=== PATIENT | female | born 1995 | race Caucasian/White ===

== ENCOUNTER → 2017-11-22 | Outpatient (REF) ==
[~2017-11-22] MED LIST: ALLEGRA60 MG PO; ATIVAN0.5 MG PO; FERROUS SU325 MG/TAB PO; KLONOPIN 0.5MG0.5 MG PO; MOTRIN 600600 MG/TAB PO; NO HOME MEDICATIONS; PERCOCET 325 MG1 TA2 PO; PRENATAL1 TA1 PO; ROXICODONE 55 MG/TAB PO; birth control pill
== END ==
LOC: ZLAB.WCH 10:10
DX: Z01.89 Encounter for other specified special examinations (principal)

== ENCOUNTER → 2017-11-23 | Outpatient (REF) ==
[2017-11-23 18:34] LABS: IRON,SERUM < 10 ug/dL (35-150)
[2017-11-23 18:43] LABS: TOTAL IRON BINDING CAPACITY 231 ug/dL (265-497)
[2017-11-23 19:11] LABS: FERRITIN 69 ng/mL (6-137)
== END ==
LOC: ZLAB.WCH 17:59
PROVIDERS: Physician Assistant
DX: Z01.89 Encounter for other specified special examinations (principal)

== ENCOUNTER 2022-01-27 10:16 | Outpatient (CLI) | payer MEDICAID ==
[~2022-01-27] VITALS: Ht 160 cm; Wt 69.1 kg
--- NOTE | 2022-01-27 10:25 | NUR ---
PT AMBULATORY TO UNIT C/O LOWER BACK CRAMPING AND PINK TINGED STREAK ON TOILET PAPER AT WORK. DENIES PASSING CLOTS, OR ANY BLOOD ON PAD. STATES CRAMPING DOES NOT FEEL LIKE A CONTRACTION, BUT MORE SHARP AND LINGERING. DENIES LEAKING OF FLUID. REPORTS POSITIVE MOVEMENT. PLACED ON EFM/TOCO. CATEGORY 1 STRIP WITH ACCELERATIONS AND NO DECELERATIONS NOTED. NO CONTRACTIONS NOTED UPON ARRIVAL. WILL CONTINUE TO MONITOR
[2022-01-27] MEDS ORDERED: ASPIRIN 81M81 MG/TA2 PO (10:40)
[2022-01-27] MEDS ORDERED: PRENATAL (10:40)
--- NOTE | 2022-01-27 10:40 | NUR ---
AT BEDSIDE. SVE CLOSED/NO BLOODY SHOW ON GLOVE WITH SVE. CATEGORY 1 STRIP AT THIS TIME ON EFM, NO CONTRACTIONS TRACING ON TOCO, PT DENIES CONTRACTIONS. LABS DRAWN PER ORDER, PENDING. VORB TO CONTINUE TO MONITOR, NOTIFY WITH LAB RESULTS, AND IF NORMAL, PT MAY DC HOME.
[2022-01-27 10:42] LABS: COLLECTION METHOD CLEAN CATCH
[2022-01-27 10:49] LABS: BASO % 0.2 % (0.0-2.0); EOS % 0.2 % (0.0-4.0); GRAN % 73.2 % (42.2-75.2); HEMATOCRIT 33.9 % (37.0-47.0); HEMOGLOBIN 11.1 g/dl (12.5-16.0); LYMPH % 21.3 % (20.0-51.0); MEAN CELL VOLUME 86 fl (80.0-100.0); MEAN CORPUSCULAR HEMOGLOBIN 28 pg (27-31); MEAN CORPUSCULAR HGB CONC 33 g/dl (33.0-37.0); MEAN PLATELET VOLUME 13.4 fl (7.4-10.4); MONO # 0.5 K/mm3 (0.1-0.6); MONO % 4.7 % (1.7-9.3); PLATELET COUNT 166 K/mm3 (130-400); RED BLOOD COUNT 3.95 M/mm3 (4.10-5.30); REDCELL DISTRIBUTION WIDTH-CV 12.8 % (11.5-14.5)
[2022-01-27 10:53] LABS: MUCOUS Present (NOT PRESENT); PH 6 (5-8); SQUAMOUS EPITHELIAL 0-2 /hpf (0-10); URINE APPEARANCE Hazy (CLEAR/HAZY); URINE BACTERIA Rare /hpf (NONE SEEN); URINE BILIRUBIN Negative (NEGATIVE); URINE BLOOD Negative (NEGATIVE); URINE COLOR Yellow (YELLOW); URINE GLUCOSE Negative (NEGATIVE); URINE KETONE Negative (NEGATIVE); URINE LEUKOCYTE ESTERASE 2+ (NEGATIVE); URINE NITRATE Negative (NEGATIVE); URINE PROTEIN(semi-quant) Negative (NEGATIVE); URINE UROBILINOGEN Negative (NEGATIVE)
[2022-01-27 10:59] LABS: ALBUMIN 2.6 gm/dL (3.5-5.0); BILIRUBIN,TOTAL 0.3 mg/dL (0.2-1.2); CALCIUM 8.1 mg/dL (8.4-10.2); CREATININE, serum 0.58 mg/dL (0.57-1.11); POTASSIUM 3.8 mmol/L (3.5-4.5)
[2022-01-27 11:00] VITALS: BP 138/82; PULSE 77; TEMP 97.8
--- NOTE | 2022-01-27 11:13 | NUR ---
CALL TO [facility] TO CALL IN PERSCRIPTION PER . PT TO BEGIN PO MACROBID 100MG BID X7 DAYS FOR DX.UTI. PER CONTINUE TO MONITOR PT FOR NO FURTHER BLEEDING UNTIL NOON AND THEN MAY DC HOME IF STABLE.
[2022-01-27 11:30] VITALS: BP 119/72; PULSE 71
[2022-01-27 12:00] VITALS: BP 112/75; PULSE 74
== END 2022-01-27 12:10 | disposition home or self-care (01) ==
LOC: LDRO 10:16
PROVIDERS: Obstetrics & Gynecology
DX: O62.9 Abnormality of forces of labor, unspecified (principal); O46.93 Antepartum hemorrhage, unspecified, third trimester; Z3A.28 28 weeks gestation of pregnancy

== ENCOUNTER 2022-02-20 11:26 | Outpatient (CLI) | payer MEDICAID ==
[~2022-02-20] VITALS: Ht 160 cm; Wt 71.8 kg
[~2022-02-20 11:26] MED LIST changes: +ASPIRIN 81M81 MG/TA2 PO; +PRENATAL
[2022-02-20 11:35] VITALS: BP 172/104; PULSE 76; TEMP 898.1; TEMP 98.1
[2022-02-20 12:02] LABS: COLLECTION METHOD CLEAN CATCH
[2022-02-20 12:07] LABS: HEMOGLOBIN 11.2 g/dl (12.5-16.0); MEAN CELL VOLUME 88 fl (80.0-100.0); MEAN CORPUSCULAR HEMOGLOBIN 29 pg (27-31); MEAN CORPUSCULAR HGB CONC 33 g/dl (33.0-37.0); MEAN PLATELET VOLUME 13.6 fl (7.4-10.4); PLATELET COUNT 189 K/mm3 (130-400); RED BLOOD COUNT 3.89 M/mm3 (4.10-5.30); REDCELL DISTRIBUTION WIDTH-CV 16.4 % (11.5-14.5)
[2022-02-20 12:08] LABS: PH 6 (5-8); SQUAMOUS EPITHELIAL 0-2 /hpf (0-10); URINE APPEARANCE Clear (CLEAR/HAZY); URINE BACTERIA Rare /hpf (NONE SEEN); URINE BILIRUBIN Negative (NEGATIVE); URINE BLOOD Negative (NEGATIVE); URINE COLOR Yellow (YELLOW); URINE GLUCOSE Negative (NEGATIVE); URINE KETONE Negative (NEGATIVE); URINE LEUKOCYTE ESTERASE Negative (NEGATIVE); URINE NITRATE Negative (NEGATIVE); URINE PROTEIN(semi-quant) 3+ (NEGATIVE); URINE RBC 0-2 /hpf (0-2); URINE UROBILINOGEN Negative (NEGATIVE); URINE WBC 0-2 /hpf (0-2)
--- NOTE | 2022-02-20 12:12 | NUR ---
1135 PATIENT HERE FROM HOME SENT BY DR HERNANDEZ FOR BLOOD PRESSURE CHECKS AND EVALUATION. EFM ON FHT 145, BABY VERY ACTIVE. NO CONTRACTIONS FELT BY PATIENT OR ON MONITOR. ASSESSMENT COMPLETED. BP 172/104. PATIENT ON LEFT SIDE,LIGHTS OUT. SIDE RAILS PADDED AT THIS TIME. 1150 DR HERNANDEZ CALLED WITH BP. IV STARTED IN LEFT WRIST. BETAMETHASONE 12 MG IM IN RIGHT GLUT. TOLERATEWS WELL. LABS SENT TO LAB AT THIS TIME. 1200 LR [facility]UNG AT THIS TIME PER DR. HERNANDEZ ORDER. PATIENT RESTS IN BED DENIES. RIGHT SIDED PAIN, HEADACHE, OR BLURRED VISION AT THIS TIME. NO SWELLING NOTED TO FEET OR HANDS AT THIS TIME .
[2022-02-20 12:13] LABS: HEMATOCRIT 34.2 % (37.0-47.0)
[2022-02-20 12:25] LABS: ALBUMIN 2.1 gm/dL (3.5-5.0); BILIRUBIN,TOTAL 0.2 mg/dL (0.2-1.2); CALCIUM 8.3 mg/dL (8.4-10.2); CREATININE, serum 0.64 mg/dL (0.57-1.11); POTASSIUM 4.3 mmol/L (3.5-4.5); TOTAL PROTEIN 6.1 gm/dL (6.2-8.1)
[2022-02-20 12:32] VITALS: BP 145/98; PULSE 88
--- NOTE | 2022-02-20 12:33 | NUR ---
1230 DR HERNANDEZ AT BEDSIDE FOR EVALUATION AND ASSESSMENT. LUNGS CLEAR. REFLEXES +2. PATIENT DENIES HEADACHE, BLURRED VISION, OR PAIN.
[2022-02-20 12:49] LABS: LYMPHOCYTE 29 % (20.0-51.0); NEUTROPHILS 66 % (42.0-75.2); PLATELET ESTIMATE NORMAL (NORMAL); POLYCHROMASIA 1+
[2022-02-20 13:30] VITALS: BP 135/94; PULSE 77
[2022-02-20 14:00] VITALS: BP 166/92; PULSE 70
--- NOTE | 2022-02-20 14:13 | NUR ---
1400 EMS AT BEDSIDE. REPORT GIVEN TO KETURAH MENESES [employer] ENGINE INSPECTOR. PATIENT TO CART. AT BEDSIDE. 139/102 PATIENT VERY ANXIOUS AT THIS TIME. ORDERS TO CALL DR HERNANDEZ IF BP ABOVE 160/110. 1405 REPORT CALLED TO CHUCK LUCIANO RN AT [facility] AT THIS TIME.
== END 2022-02-20 14:00 | disposition home or self-care (01) ==
LOC: LDRO 11:26
PROVIDERS: Obstetrics & Gynecology
DX: Z34.93 Encounter for supervision of normal pregnancy, unspecified, third trimester (principal); Z3A.31 31 weeks gestation of pregnancy
CPT/HCPCS: J0702; J7120